=== PATIENT | female | born 1980 | race Caucasian/White ===

== ENCOUNTER 2018-05-11 19:02 | Emergency (ER) | payer OTHER ==
[~2018-05-11] VITALS: Ht 157.5 cm; Wt 83.5 kg
[2018-05-11] MEDS ORDERED: ACETAMINOPHEN-1 EAC1 PO (21:12)
[2018-05-11] MEDS ORDERED: IBUPROFEN 800800 M1 PO (21:12)
[2018-05-11 22:21] VITALS: BP 128/59
== END 2018-05-11 22:22 | disposition still patient (30) ==
LOC: M.ERS 19:02
DX: S80.11XA Contusion of right lower leg, initial encounter (principal); S00.83XA Contusion of other part of head, initial encounter; F17.210 Nicotine dependence, cigarettes, uncomplicated; Z88.1 Allergy status to other antibiotic agents; Y08.89XA Assault by other specified means, initial encounter; Y93.89 Activity, other specified; Y92.89 Other specified places as the place of occurrence of the external cause; Y99.8 Other external cause status